=== PATIENT | male | born 1960 | race Caucasian/White ===

== ENCOUNTER 2022-01-10 11:06 | Day surgery (SDC) | payer BC ==
[2022-01-09 09:40] VITALS: BMI 22.3
[~2022-01-10 11:06] MED LIST: ALBUTEROL NEB (CONC) 2.5 MG/0.5 ML INHALATION ONE; ATROPINE SULFATE 0.4 MG/ML 1 ML VIAL IM ONE; LACTATED RINGERS 1,000 ML IV SCH; LIDOCAINE 2% (PF) 20 MG/ML 5 ML VIAL INHALATION ONE; LIDOCAINE VISCOUS 300 MG/15 ML CUP MUCOUS MEM ONE
[2022-01-10 11:52] VITALS: TEMP 97.9
[2022-01-10] MEDS ORDERED: PROPOFOL 10 MG/ML 20 ML VIAL IV ONE (12:04)
[2022-01-10] MEDS ORDERED: KETAMINE 10 MG/ML 20 ML VIAL ONE (12:04)
[2022-01-10] MEDS ORDERED: MIDAZOLAM 2 MG/2 ML VIAL ONE (12:04)
[2022-01-10] MEDS ORDERED: LIDOCAINE 2% INJ 20 MG/ML INTRATRACH ONE (12:09)
[2022-01-10 12:47] VITALS: BP 109/73; PULSE 77; RESP 18
--- NOTE | 2022-01-10 22:41 | PCN ---
PROCEDURE NOTE PULMONARY/CRITICAL CARE PROCEDURE NOTE: PROCEDURE: Bronchoscopy and BAL, brushes right upper lobe. BAL right upper lobe. PREOP DIAGNOSIS: Pneumonia. COPD and hypogammaglobulinemia. POSTOP DIAGNOSIS: Pneumonia. severe COPD and hypogammaglobulinemia. ANESTHESIA: Provided general anesthetic. PROCEDURE: The procedure was done in room #1. There was universal timeout and informed consent. After the patient was adequately sedated and being fully monitored, the bronchoscope was inserted through the right nostril. It passed through the right nasopharynx into the oropharynx. The hypopharynx was identified and topicalized. The anterior commissure, true cords, false cords, arytenoids, piriform sinuses, right and left, and vallecula, all appeared relatively normal. The glottic opening was topicalized, and the bronchoscope was pushed through the glottic opening into the trachea. The trachea appeared relatively normal. Tracheal manuela was sharp. As I got down to the distal trachea, there was significant mucus secretions and purulence, noted emanating from the right mainstem. It was suctioned. Next, we topicalized the right mainstem and the left mainstem. The left side was evaluated first. The left upper lobe and its 2 segments, the lingula and its 2 segments, and the left lower lobe and its 4 segments were all found to have similar findings of mild to moderate bronchitis, hyperemia and erythema of the airways, and some mucosal friability. There was no dominant mass or tumor. The secretions were suctioned without difficulty. On the right side however, there was significant secretions noted particularly in the right upper lobe. They were quite thick and purulent. They were difficult to suction. The right upper lobe and its 3 segments right middle lobe and its 2 segments, right lower lobe and its 5 segments all had otherwise normal anatomical appearance other than the fact there was moderate to more severe bronchitic changes. The airways were quite erythematous and hyperemic. There was no dominant mass or tumor. There was no bleeding. Next, under direct visualization, there were brushes done through the right upper lobe. The bronchoscope was then wedged into the right upper lobe, formal BAL took place. The patient tolerated the procedure well. The specimens will be sent to the laboratory for analysis. There was no immediate complication. The bronchoscope was withdrawn. The patient will be recovered. MMODL / IJN: [id number] /
[2022-01-10 23:19] LABS: Appearance,BF Cloudy
== END 2022-01-10 13:01 | disposition home or self-care (01) ==
LOC: ORWHC2ENDO 11:06
PROVIDERS: ATTEND Internal Medicine Critical Care Medicine
DX: J18.9 Pneumonia, unspecified organism (principal); J44.9 Chronic obstructive pulmonary disease, unspecified; J84.10 Pulmonary fibrosis, unspecified; D80.1 Nonfamilial hypogammaglobulinemia; I25.10 Atherosclerotic heart disease of native coronary artery without angina pectoris; I10 Essential (primary) hypertension; E11.9 Type 2 diabetes mellitus without complications; Z87.891 Personal history of nicotine dependence; F39 Unspecified mood [affective] disorder; Z79.01 Long term (current) use of anticoagulants; Z79.899 Other long term (current) drug therapy; Z95.5 Presence of coronary angioplasty implant and graft; Z88.8 Allergy status to other drugs, medicaments and biological substances; Z91.041 Radiographic dye allergy status; Z79.82 Long term (current) use of aspirin; Z79.51 Long term (current) use of inhaled steroids; Z80.1 Family history of malignant neoplasm of trachea, bronchus and lung; Z80.0 Family history of malignant neoplasm of digestive organs
CPT/HCPCS: 87798 ×3; 87496; 87498; 87529; 88104; 88108; 88305; 89050; 87252; 87502; 87634; 87070; 87205; 87116; 87102; 87206; 31623; 31624; J2001; J2250; J2704

== ENCOUNTER 2023-11-13 12:37 | Day surgery (SDC) | payer BC ==
[2023-11-12 12:26] VITALS: BMI 21.4
[~2023-11-13 12:37] MED LIST changes: -ALBUTEROL NEB (CONC) 2.5 MG/0.5 ML INHALATION ONE; -LIDOCAINE 2% (PF) 20 MG/ML 5 ML VIAL INHALATION ONE; -LIDOCAINE VISCOUS 300 MG/15 ML CUP MUCOUS MEM ONE
[2023-11-13] MEDS: LACTATED RINGERS 1,000 ML IV SCH (12:57)
[2023-11-13] MEDS: ATROPINE SULFATE 0.4 MG/ML 1 ML VIAL IM ONE (13:29)
[2023-11-13] MEDS ORDERED: LIDOCAINE 1% INJ 10MG/ML (20 ML MDV) ONE (13:42)
[2023-11-13] MEDS ORDERED: MIDAZOLAM 2 MG/2 ML VIAL ONE (13:42)
[2023-11-13] MEDS ORDERED: KETAMINE HCL IN 0.9 % NACL 50 MG/5 ML SYRINGE ONE (13:42)
[2023-11-13] MEDS ORDERED: PROPOFOL 10 MG/ML 20 ML VIAL IV ONE (13:42)
[2023-11-13] MEDS: LIDOCAINE 2% INJ 20 MG/ML INTRATRACH ONE (13:49)
[2023-11-13 13:57] VITALS: TEMP 97.4
--- NOTE | 2023-11-13 14:27 | PCN ---
PROCEDURE NOTE PULMONARY/CRITICAL CARE PROCEDURE NOTE: PROCEDURES PERFORMED: Bronchoscopy, airway examination, therapeutic lavage, BAL right middle lobe. PREOPERATIVE DIAGNOSES: COPD, retained secretions, bronchitis. POSTOPERATIVE DIAGNOSES: COPD, retained secretions, bronchitis. [employer] TEAM LEADER: Dr. Ge. There was informed consent and universal timeout. The patient's procedure took place in room #3 [facility]. ANESTHESIA: Provided monitored anesthesia care. DESCRIPTION OF PROCEDURE: After the patient was adequately sedated and being fully monitored, the bronchoscope was inserted through the right nostril. It passed through the right nasopharynx into the oropharynx. The hypopharynx was identified and topicalized. The hypopharyngeal structures, including anterior commissure, true cords, false cords, piriform sinuses, right and left, vallecula, epiglottis, all appeared relatively normal. There were some secretions noted in the hypopharynx. Next, the glottic opening was topicalized with lidocaine and the bronchoscope was pushed through the glottic opening into the trachea. There were thick purulent looking viscid secretions in the trachea. They were suctioned with saline lavage. The tracheal manuela was sharp. The right and left mainstem were topicalized. Next we did a thorough evaluation of both lungs, including the right upper lobe and its 3 segments, right middle lobe and its 2 segments, right lower lobe and its 5 segments, left upper lobe proper and its 2 segments, lingula and its 2 segments, and left lower lobe and its 4 segments. The patient had similar findings throughout. There was skhrprqv-kl-sdolmb bronchitis throughout. There was mucosal erythema and hyperemia. There was some vascular fragility. The patient did not have a dominant mass or tumor noted. There was some vascular prominence as well. The secretions were thick and distant. They were suctioned with some difficulty, with the aid of saline lavage. Next the bronchoscope was wedged into the right middle lobe. We did a formal BAL. A 30 mL of turbid fluid was recovered. The patient tolerated the procedure well. There was no immediate complication. The fluid will be sent for analysis. The patient will be recovered. Pictures of the secretions were taken. MMODL / IJN: [id number] /
[2023-11-13 14:43] VITALS: BP 144/89; PULSE 72; RESP 16
[2023-11-13 22:24] LABS: Appearance,BF Cloudy (Clear); RBC, Body Fluid 130 /UL (0-2000)
[2023-11-14 09:24] LABS: Nucleated Cells, Body Fluid 400 /UL
== END 2023-11-13 14:51 | disposition home or self-care (01) ==
LOC: ORWHC2ENDO 12:37
PROVIDERS: ATTEND Internal Medicine Critical Care Medicine
DX: J44.9 Chronic obstructive pulmonary disease, unspecified (principal); I49.9 Cardiac arrhythmia, unspecified; J43.9 Emphysema, unspecified; I25.10 Atherosclerotic heart disease of native coronary artery without angina pectoris; I10 Essential (primary) hypertension; G25.0 Essential tremor; F41.1 Generalized anxiety disorder; G47.00 Insomnia, unspecified; N52.9 Male erectile dysfunction, unspecified; J84.10 Pulmonary fibrosis, unspecified; Z96.642 Presence of left artificial hip joint; Z79.899 Other long term (current) drug therapy; Z79.82 Long term (current) use of aspirin; Z86.16 Personal history of COVID-19
CPT/HCPCS: 88108; 88305; 89050; 87070; 87205; 87116; 87102; 87077; 87186; 87206; 31624; J2001 ×2; J2250; J0461; J2704

== ENCOUNTER → 2024-04-29 | Outpatient (CLI) | payer BC ==
--- NOTE | 2024-05-02 15:04 | PE ---
EXAMINATION TYPE: PET CT fusion skull to thigh DATE OF EXAM: 04/29/2024 COMPARISON: None Prior PET/CT: No prior at this location HISTORY: Solitary pulmonary nodule TECHNIQUE: Following the intravenous administration of 11.30 mCi of F-18 FDG, whole body images are performed from the skull base to the midthigh. Images are reviewed on the computer in the coronal, a xial, and sagittal planes. Reconstructed rotating images are created on independent workstation and reviewed on the computer. A localization and attenuation correction CT is performed in conjunction with the PET scan. DLP: 524.89 mGycm SCAN: Initial Blood glucose: 81 mg/dL Average Mediastinum SUV: 2.25 Average Liver SUV: 2.18 FINDINGS: NECK: No abnormal uptake THORAX: There is mild diffuse increased pleural uptake in the anterior right upper lobe., Example mary ge 80, SUV 5.14, image 101, SUV 3.54. There is a focus of intense radiotracer in the right upper lobe. Image 88, SUV 8.91. Small posterior pleural-based nodules in the right midlung, example image 105, and mild elevated SUV. A lateral nodule measures 2.36 inferior nodule measures SUV 2.21. There is a punctate area of increased uptake within the lateral right lower lung field image 123, SUV 4.70. Nodularity along the posterior lateral pleural margin again is mild increased uptake, example posteri or nodule image 129 SUV 3.22. Posterior pleural thickening at the right lung sulcus has increased SUV of 4.83, image 143. Pleural t hickening at image 131 posterior right lung has an SUV 6.55. There is a somewhat prominent lymph node within the right peritracheal region, image 93. This has endy e mild uptake within the superior 4.08. Metastatic lesion should be considered. ABDOMEN: No abnormal left PELVIS: No abnormal uptake OSSEOUS STRUCTURES: No abnormal uptake LOCALIZATION CT: There is a cavitary lesion with air fluid level within the right upper lung field. R ight lung tiny pleural calcifications present. COMPARISON: None at this location IMPRESSION: 1. Although there are multiple small areas of pleural nodularity or thickening with elevated SUV valu es suspicious for neoplasm. 2. Couple of small nodularities within the right lateral lower lung field and medial right upper lung field adjacent to a cavitary lesion with elevated SUV levels suspicious for neoplasm. 3. There is a right paratracheal lymph node with increased SUV suspicious for metastatic lesion. [facility], Workstation: [facility], 05/02/2024 3:01 PM
== END | disposition home or self-care (01) ==
LOC: RADPETMAIN 13:11
PROVIDERS: ATTEND Internal Medicine Critical Care Medicine
DX: R91.8 Other nonspecific abnormal finding of lung field (principal)
CPT/HCPCS: 78815

== ENCOUNTER 2024-08-11 12:42 | Day surgery (SDC) | payer BC ==
[2024-08-09 11:56] VITALS: BMI 21.7
[~2024-08-11 12:42] MED LIST changes: +LIDOCAINE 1% (10MG/ML) FOR IV START INTRADERMA PRN
[2024-08-11 13:13] VITALS: TEMP 97.3
[2024-08-11] MEDS: IV FLUID CONTINUATION 1,000 ML IV ONE ×3 (13:15→14:18)
[2024-08-11] MEDS: LACTATED RINGERS 1,000 ML IV SCH (13:26)
[2024-08-11] MEDS ORDERED: LIDOCAINE 1% INJ 10MG/ML (20 ML MDV) ONE (13:40)
[2024-08-11] MEDS ORDERED: MIDAZOLAM 2 MG/2 ML VIAL ONE (13:40)
[2024-08-11] MEDS ORDERED: PROPOFOL 10 MG/ML 20 ML VIAL IV ONE (13:40)
[2024-08-11] MEDS ORDERED: KETAMINE HCL IN 0.9 % NACL 50 MG/5 ML SYRINGE ONE (13:40)
[2024-08-11] MEDS: LIDOCAINE 2% (PF) 20 MG/ML 2 ML VIAL INHALATION ONE (14:07)
[2024-08-11 15:16] VITALS: BP 131/83; PULSE 79; RESP 16
--- NOTE | 2024-08-11 19:58 | PCN ---
PROCEDURE NOTE PROCEDURES PERFORMED: Bronchoscopy, airway examination, therapeutic lavage, BAL right upper lobe, brushes right upper lobe. PREOPERATIVE DIAGNOSIS: Pneumonia/lung abscess. POSTOPERATIVE DIAGNOSIS: Pneumonia/lung abscess. OPERATORS: Dr. Ge and Dr. Varner. The patient's procedure took place in room #1 [facility]. There was informed consent and universal timeout. The DRUG ROOM CLERK provided monitored anesthesia care. After the patient was adequately sedated and being fully monitored, the scope was passed transorally, through the glottic opening, into the airway. The glottic opening was topicalized with lidocaine prior. We could not pass the scope transnasally, as the nasal passages were quite narrow. The trachea appeared relatively normal, although there were secretions noted throughout the trachea. They were suctioned with saline lavage. The trachea, right and left mainstem were topicalized with lidocaine. The tracheal manuela was sharp. The right upper lobe and its 3 segments, right middle lobe and its 2 segments, right lower lobe and its 5 segments, left upper lobe proper and its 2 segments, lingula and its 2 segments, and left lower lobe and its 4 segments all had similar findings of diffuse airways, erythema, and hyperemia. There was mucosal friability. There was vascular engorgement. There was no dominant mass or tumor. Throughout the airways, particularly in the left lower lobe, and in the right upper lobe, there were thick very viscid purulent looking secretions. They were suctioned with some difficulty. After the secretions were suctioned, the bronchoscope was wedged into the right upper lobe. We did brushes to the right upper lobe, and a formal BAL to the right upper lobe. Thirty mL of turbid fluid was recovered. The patient tolerated the procedure well. Next, the scope was used to further evaluate the airways, and saline was used to cleanse the airways, of any additional or remaining mucus. The patient tolerated the procedure well. The bronchoscope was withdrawn. The patient will be recovered. There was no immediate complication. The fluid was sent for analysis. MMODL / IJN: [id number] /
== END 2024-08-11 15:20 | disposition home or self-care (01) ==
LOC: ORWHC2ENDO 12:42
PROVIDERS: ATTEND Internal Medicine Critical Care Medicine
DX: J85.1 Abscess of lung with pneumonia (principal); J44.9 Chronic obstructive pulmonary disease, unspecified; J84.10 Pulmonary fibrosis, unspecified; I10 Essential (primary) hypertension; I49.9 Cardiac arrhythmia, unspecified; F41.1 Generalized anxiety disorder; G25.0 Essential tremor; Z88.9 Allergy status to unspecified drugs, medicaments and biological substances; A49.8 Other bacterial infections of unspecified site; D84.9 Immunodeficiency, unspecified; G47.00 Insomnia, unspecified; N52.9 Male erectile dysfunction, unspecified; I25.10 Atherosclerotic heart disease of native coronary artery without angina pectoris; Z86.16 Personal history of COVID-19; Z79.82 Long term (current) use of aspirin; Z79.899 Other long term (current) drug therapy; Z95.5 Presence of coronary angioplasty implant and graft; Z91.041 Radiographic dye allergy status; Z88.8 Allergy status to other drugs, medicaments and biological substances; Z91.048 Other nonmedicinal substance allergy status
CPT/HCPCS: 87798 ×3; 87496; 87498; 87529; 88104; 88108; 88305; 87502; 87634; 87070; 87205; 87116; 87102; 87206; 87635; 31623; 31624; J2250; J2003 ×2; J2704; 89050

== ENCOUNTER → 2024-10-28 | Outpatient (CLI) | payer BC ==
--- NOTE | 2024-11-01 22:24 | PE ---
EXAMINATION TYPE: PET CT fusion skull to thigh DATE OF EXAM: 10/28/2024 COMPARISON: No comparison pertinent CTs at this location Prior PET/CT: 04/29/2024 CLINICAL INDICATION: Male, 64 years old with history of R91.[address] SCAN, TECHNIQUE: Following the intravenous administration of 12.06 mCi of F-18 FDG, whole body images are performed PET CT fusion skull to thigh. Images are reviewed on the computer in the coronal, axial, a nd sagittal planes. Reconstructed rotating images are created on independent workstation and reviewe d on the computer. A localization and attenuation correction CT is performed in conjunction with th e PET scan. DLP: 537.79 mGycm SCAN: Initial Blood glucose: 12.06 mg/dL Average Mediastinum SUV: 2.01 Average Liver SUV: 2.28 FINDINGS: NECK: No abnormal uptake THORAX: There is mild increased uptake along the margin of a cavitation with air-fluid level in the l eft apex. Example image 56, SUV 3.93. There is a small lymph node in the pretracheal space, image 72, SUV 2.97. Retromammary lymph node may be present image 80, SUV 2.3. Right suprahilar uptake is prese nt image 80, SUV 3.42. There is marked abnormal uptake within the posterior right midlung, SUV 8.55, image 92. Multiple sha tional punctate nodularities along the pleural margin are hyperintense example 3.47 near the larger p osterior lung nodule. There is a punctate nodule within the parenchyma anterior lateral right lung, i mage 99, SUV 3.92 additional areas of uptake or just above the diaphragm, exam 106, SUV 3.82 at the d iaphragm. Additional hyperintense nodules are within the pleural margins, example image 112, SUV 6.79 anteriorly and 5.78 posteriorly there is hyperintense uptake within the density within the posterior medial left lung, image 113, SUV 7.34. ABDOMEN: No abnormal uptake PELVIS: No abnormal uptake OSSEOUS STRUCTURES: No abnormal uptake LOCALIZATION CT: Emphysematous changes are evident. The cavitary lesion in the anterior right lung is relatively apparent. Small nodules corresponding to the hyperintensities are identified within the p eripheral margin. The density within the posterior right midlung has spiculated margins and is suspic ious COMPARISON: Uptake increase over the interval. The spiculated nodular density in the developed over t he interval. IMPRESSION: 1. Multiple increasing SUV intensity nodules in the right pleural margin. Increasing SUV value in the cavitary lesion wall. Findings are suspicious for neoplasm. [facility], , 11/01/2024 10:22 PM
== END | disposition home or self-care (01) ==
LOC: RADPETMAIN 12:28
PROVIDERS: ATTEND Internal Medicine Critical Care Medicine
DX: R91.8 Other nonspecific abnormal finding of lung field (principal); J43.9 Emphysema, unspecified
CPT/HCPCS: 78815; A9552